=== PATIENT | female | born 1985 | race American Indian/Alaskan Native ===

== ENCOUNTER 2016-11-04 16:40 | Emergency (ER) | payer MEDICAID, OTHER ==
[2016-11-04 18:16] LABS: Alanine Aminotransferase 7 units/L (7-56); Albumin 4.5 g/dL (3.9-5); Albumin/Globulin Ratio 1.3 %; Alkaline Phosphatase 44 units/L (35-129); Anion Gap 19 mmol/L; Blood Urea Nitrogen 8 mg/dL (7-17); Calcium 9.4 mg/dL (8.4-10.2); Carbon Dioxide 23 mmol/L (22-30); Chloride 97.2 mmol/L (98-107); Glucose 83 mg/dL (65-100); Potassium 3.9 mmol/L (3.6-5.0); Sodium 135 mmol/L (137-145)
[2016-11-04 18:21] LABS: Basophils % (Auto) 0.4 % (0.0-1.8); Bilirubin,Direct < 0.2 mg/dL (0-0.2); Bilirubin,Indirect 0.2 mg/dL; Eosinophils % (Auto) 0.6 % (0.0-4.3); Hematocrit 37.1 % (30.3-42.9); Hemoglobin 12.2 gm/dl (10.1-14.3); Mean Corpuscular HGB Conc 33 % (30-34); Mean Corpuscular Hemoglobin 29 pg (28-32); Mean Corpuscular Volume 89 fl (79-97); Platelet Count 275 K/mm3 (140-440); Red Blood Count 4.17 M/mm3 (3.65-5.03); White Blood Count 17.9 K/mm3 (4.5-11.0)
[2016-11-04] MEDS ORDERED: TYLENOL PO ONE (23:52)
--- NOTE | 2016-11-05 01:57 | Emergency Department Report ---
ED Seizure HPI - General Chief Complaint: Seizure Stated Complaint: SEIZURE/HEAD PAIN Time Seen by Provider: 11/04/16 23:29 Source: patient Mode of arrival: Ambulatory Limitations: No Limitations - History of Present Illness Initial Comments: Pt presents to ED with c/o seizures just [employer]. During this event, she struck her head against a metaal railing. Pt is back to her baseline, pt c/o low back pain and headaches located around her right frontal region. Pt is presently 14 weeks gravid. Her last seizure episode was 3 years ago. Pt has being discontinued off her seizure meds Complaint: seizure -: Sudden Description of Episode: loss of consciousness Witnessed:: Yes Trauma: Yes (heaad, lower back and anteior abdomen. Pt is 14 wks ) Seizure History: known seizure disorder Place: street/outdoors Possible Precipitating Event: none Associated Symptoms: weakness, other (pt struck her head and anterior abdomen) - Related Data Home Medications Medication Instructions Recorded Confirmed Last Taken Multivitamin [Multi Vitamin Daily] 1 each PO QDAY 03/14/14 03/14/14 03/14/14 Previous Rx's Medication Instructions Recorded Last Taken Type traMADol [Ultram] 50 mg PO Q6HR PRN #10 tablet 03/15/14 Unknown Rx Albuterol Sulfate [Ventolin HFA] 2 puff IH Q4H PRN #1 hfa.aer.ad 01/29/15 Unknown Rx Azithromycin [Zithromax Z-МАРИЯ] 250 mg PO DAILY #6 tab 01/29/15 Unknown Rx metroNIDAZOLE [Flagyl] 500 mg PO Q12HR #14 tab 01/29/15 Unknown Rx predniSONE [Deltasone] 20 mg PO QDAY #6 tab 01/29/15 Unknown Rx Acetaminophen [Acetaminophen TAB] 650 mg PO Q6HR PRN #30 tablet 11/05/16 Unknown Rx Allergies Allergy/AdvReac Type Severity Reaction Status Date / Time No Known Allergies Allergy Verified 11/04/16 17:06 ED Review of Systems ROS: Stated complaint: SEIZURE/HEAD PAIN Other details as noted in HPI Comment: All other systems reviewed and negative Constitutional: malaise, weakness. denies: chills, diaphoresis, fever Eyes: denies: eye discharge, vision change ENT: denies: dental pain Respiratory: denies: cough, orthopnea, shortness of breath, SOB with exertion Cardiovascular: denies: chest pain, palpitations, dyspnea on exertion, orthopnea , edema, paroxysmal nocturnal dyspnea Endocrine: no symptoms reported Gastrointestinal: denies: nausea, vomiting, diarrhea, constipation, hematemesis Genitourinary: denies: dysuria, frequency, hematuria, discharge Musculoskeletal: back pain, myalgia. denies: joint swelling, arthralgia Skin: denies: lesions, change in color, change in hair/nails Neurological: headache, weakness ED Past Medical Hx - Past Medical History Previous Medical History?: Yes Hx Seizures: Yes Additional medical history: Ruptured uterus. Rh- - Surgical History Past Surgical History?: Yes Additional Surgical History: x 3. partial tubal ligation - Social History Smoking Status: Current Every Day Smoker Substance Use Type: Marijuana - Medications Home Medications: Home Medications Medication Instructions Recorded Confirmed Last Taken Type Multivitamin [Multi Vitamin Daily] 1 each PO QDAY 03/14/14 03/14/14 03/14/14 History traMADol [Ultram] 50 mg PO Q6HR PRN #10 tablet 03/15/14 Unknown Rx Albuterol Sulfate [Ventolin HFA] 2 puff IH Q4H PRN #1 hfa.aer.ad 01/29/15 Unknown Rx Azithromycin [Zithromax Z-МАРИЯ] 250 mg PO DAILY #6 tab 01/29/15 Unknown Rx metroNIDAZOLE [Flagyl] 500 mg PO Q12HR #14 tab 01/29/15 Unknown Rx predniSONE [Deltasone] 20 mg PO QDAY #6 tab 01/29/15 Unknown Rx Acetaminophen [Acetaminophen TAB] 650 mg PO Q6HR PRN #30 tablet 11/05/16 Unknown Rx ED Physical Exam - General Limitations: No Limitations General appearance: alert, in distress (mild) - Head Head exam: Present: atraumatic, normocephalic - Eye Eye exam: Present: normal appearance, PERRL, scleral icterus Pupils: Present: normal accommodation - ENT ENT exam: Present: normal exam, normal orophraynx, mucous membranes moist - Neck Neck exam: Present: normal inspection, full ROM. Absent: tenderness, lymphadenopathy - Cardiovascular Cardiovascular Exam: Present: regular rate, normal rhythm, normal heart sounds. Absent: bradycardia, systolic murmur, diastolic murmur - GI/Abdominal GI/Abdominal exam: Present: soft, distended (gravis abdomen, FHT is 176/min), normal bowel sounds - Rectal Rectal exam: Present: deferred - Extremities Exam Extremities exam: Present: normal inspection, full ROM, normal capillary refill - Back Exam Back exam: Present: normal inspection, tenderness (lower back), muscle spasm ( lower back) - Neurological Exam Neurological exam: Present: alert, oriented X3, CN II-XII intact ED Course Vital Signs 11/04/16 11/04/16 11/04/16 16:59 21:25 21:30 Temperature 97.8 F Pulse Rate 78 86 85 Respiratory 16 20 17 Rate Blood Pressure 121/61 108/69 O2 Sat by Pulse 99 100 Oximetry 11/04/16 11/04/16 11/04/16 21:46 22:00 22:16 Temperature Pulse Rate 92 H 83 79 Respiratory 18 17 17 Rate Blood Pressure 118/66 113/71 113/71 O2 Sat by Pulse 100 99 100 Oximetry 11/04/16 11/04/16 11/04/16 22:30 22:46 23:00 Temperature Pulse Rate 75 84 76 Respiratory 13 11 L 15 Rate Blood Pressure 104/63 104/63 99/72 O2 Sat by Pulse 100 98 Oximetry 11/04/16 11/04/16 11/04/16 23:16 23:24 23:29 Temperature Pulse Rate 80 80 Respiratory 17 11 L 18 Rate Blood Pressure 99/72 99/72 O2 Sat by Pulse 100 98 98 Oximetry 11/04/16 11/04/16 11/05/16 23:30 23:46 00:00 Temperature Pulse Rate 79 82 75 Respiratory 12 14 15 Rate Blood Pressure 108/72 108/72 117/75 O2 Sat by Pulse 100 100 100 Oximetry - Reevaluation(s) Reevaluation #1: 11/05/16 01:[address] have [address] Scan of her head done ED Medical Decision Making - Lab Data Result diagrams: 11/04/16 17:38 11/04/16 17:38 Critical Care Time: No Critical care attestation.: If time is entered above; I have spent that time in minutes in the direct care of this critically ill patient, excluding procedure time. ED Disposition Clinical Impression: Seizures, Head injury due to trauma Disposition: DC-01 TO HOME OR SELFCARE Is pt being admited?: No Does the pt Need Aspirin: No Condition: Stable Instructions: Minor Head Injury (ED), Epilepsy (ED) Additional Instructions: Follow up with your Neurologist in light of yor return of seizures. Follow up with your Medical Sales Consultant . Prescriptions: Acetaminophen [Acetaminophen TAB] 650 mg PO Q6HR PRN #30 tablet PRN Reason: Pain Referrals: PRIMARY CARE, [Primary Care Provider] - 3-5 Days Time of Disposition: 01:57
[2016-11-05 02:49] VITALS: BP 117/75
== END 2016-11-05 02:52 | disposition home or self-care (01) ==
LOC: ED 16:40
DX: O26.891 Other specified pregnancy related conditions, first trimester (principal); R56.9 Unspecified convulsions; R53.1 Weakness; F17.200 Nicotine dependence, unspecified, uncomplicated; F12.10 Cannabis abuse, uncomplicated; X58.XXXA Exposure to other specified factors, initial encounter; Y93.89 Activity, other specified; Y92.89 Other specified places as the place of occurrence of the external cause; Y99.8 Other external cause status
CPT/HCPCS: 36415; 80048; 80074; 84702; 85025